=== PATIENT | male | born 1985 | race Caucasian/White ===

== ENCOUNTER 2021-06-15 00:46 | Emergency (ER) | payer BC ==
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
== END 2021-06-15 01:11 ==
LOC: MW.ED 00:46
DX: S00.83XA Contusion of other part of head, initial encounter (principal); Y04.0XXA Assault by unarmed brawl or fight, initial encounter
CPT/HCPCS: 99283

== ENCOUNTER 2021-06-16 09:31 | Emergency (ER) | payer BC ==
[2021-06-16] MEDS ORDERED: Acetaminophen 500 MG Tab PO ONE (10:57)
[2021-06-16] MEDS ORDERED: Acetaminophen/HYDROcodone 325-5 MG Tab PO ONE (10:57)
[2021-06-16] MEDS ORDERED: Ketorolac 60 MG/2 ML SDV IM ONE (10:57)
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
--- NOTE | 2021-06-16 11:54 | CR ---
Indication: Trauma. Technique: Right hand 3 views. Comparison: None. Findings/Impression: Bones: Acute transverse nondisplaced fractures present in the proximal right 2nd metacarpal. No other osseous abnormality. Joint spaces: Unremarkable. Soft tissues: Unremarkable. Dictated by Dario Yun MD @ 06/16/2021 11:53:18 AM (Electronically Signed)
--- NOTE | 2021-06-16 12:20 | CT ---
INDICATION: Fall from approximately 12 feet COMPARISON: None available TECHNIQUE: CT examination of the lumbar spine is performed with spiral technique without contrast. Two mm thick axial, sagittal and coronal reconstructions were made. Please note that all CT scans at this facility use dose modulation, iterative reconstruction, and/or weight-based dosing when appropriate to reduce radiation dose to as low as reasonably achievable. FINDINGS: : The vertebral bodies are normal in height with no sign of compression fracture or endplate fracture. There is grade 1 posterior subluxation of L5 on S1 which is probably a developmental variant. The rest of the lumbar vertebral bodies are in anatomic alignment. 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 This does not have the appearance of an acute fracture. 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 There is an acute, mildly displaced, oblique fracture of the base of the right L4 transverse process. There is no sign of any additional fracture of the posterior elements. 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 This predisposes the patient to spinal stenosis from degenerative disease. There is mild spinal stenosis at L3-4 and L4-5 from congenital narrowing and mild diffuse disc bulging. There is mild bilateral lateral disc bulging into the neural foramina at these levels, without impingement upon the exiting nerve roots. At L5-S1, there is mild central disc bulging superimposed upon the grade 1 posterior subluxation of L5 on S1, without spinal stenosis. There is no significant foraminal stenosis. The more superior intervertebral discs are normal in appearance All of the intervertebral discs are normal in height. The visualized bony pelvis and sacrum normal in appearance, including normal appearance of the sacroiliac joints, sacral ala, pubic symphysis, and visualized portions of the hips. The visualized abdominal viscera is normal in appearance. IMPRESSION: Acute, mildly displaced, oblique fracture of the base of the right L4 transverse process. No sign of any additional osseous injury to the lumbar spine. Grade 1 posterior subluxation of L5 on S1 which is probably a developmental variant. Mild spinal stenosis at L3-4 and L4-5 as described above. Please note that all CT scans at this facility use dose modulation, iterative reconstruction, and/or weight-based dosing when appropriate to reduce radiation dose to as low as reasonably achievable. Dictated by Ayan Nagel MD @ 06/16/2021 12:19:12 PM (Electronically Signed)
== END 2021-06-16 14:07 | disposition home or self-care (01) ==
LOC: MW.ED 09:31
DX: S62.340A Nondisplaced fracture of base of second metacarpal bone, right hand, initial encounter for closed fracture (principal); S62.521A Displaced fracture of distal phalanx of right thumb, initial encounter for closed fracture; S32.049A Unspecified fracture of fourth lumbar vertebra, initial encounter for closed fracture; Z88.0 Allergy status to penicillin; W17.89XA Other fall from one level to another, initial encounter; Y92.69 Other specified industrial and construction area as the place of occurrence of the external cause
CPT/HCPCS: 29125; 72131; 73130; 96372; 99284; A9270; J1885